=== PATIENT | female | born 1965 | race Caucasian/White ===

== ENCOUNTER 2017-10-07 11:38 | Emergency (ER) | payer BC, OTHER ==
[~2017-10-07] VITALS: Ht 162.6 cm; Wt 87.5 kg
[2017-10-07 12:24] VITALS: BP 135/80
== END 2017-10-07 12:38 | disposition home or self-care (01) ==
LOC: ER 11:47
DX: H11.32 Conjunctival hemorrhage, left eye (principal); I10 Essential (primary) hypertension
CPT/HCPCS: 99281